=== PATIENT | female | born 1955 | race Caucasian/White ===

== ENCOUNTER 2017-11-09 14:42 | Emergency (ER) | payer MEDICAID | END 2017-11-09 18:12 | disposition home or self-care (01) | LOC: D.ER 14:42 | DX: J20.9 Acute bronchitis, unspecified (principal); J45.909 Unspecified asthma, uncomplicated; J01.90 Acute sinusitis, unspecified; K21.9 Gastro-esophageal reflux disease without esophagitis; F17.200 Nicotine dependence, unspecified, uncomplicated ==

== ENCOUNTER 2019-10-20 17:53 | Emergency (ER) | payer MEDICARE, MEDICAID ==
[~2019-10-20] VITALS: Ht 172.7 cm; Wt 86.4 kg
[2019-10-20 18:21] VITALS: Ht 172.7 cm; Wt 86.4 kg
[2019-10-20] MEDS ORDERED: MECLIZINE HCL25 MG PO (19:33)
[2019-10-20] MEDS ORDERED: OMNICEF300 MG PO (19:33)
[2019-10-20 19:41] LABS: BASOPHILS 0.2 % (0-2); EOSINOPHILS 2.1 % (0-7); HEMATOCRIT 40.6 % (36.0-48.0); HEMOGLOBIN 13.3 g/dL (12-16); IMMATURE GRANULOCYTES 0.2 % (0-5); LYMPHOCYTES 46.8 % (15-50); MCH 29.8 pg (26.0-34.0); MCHC 32.8 g/dL (31.0-37.0); MEAN PLATELET VOLUME 9.9 fL (7.4-10.4); MONOCYTES 11.3 % (2-11); NEUTROPHILS 39.4 % (40-80); PLATELET COUNT 259 10x3/uL (130-400); RBC 4.46 10x6/uL (4.00-5.40); RDW 12.7 % (11.5-14.5); WBC 6.1 10x3/uL (4.8-10.8)
[2019-10-20 19:46] LABS: CALC OSMOLALITY 280 mosm/kg (275-300); CALCIUM 9.2 mg/dL (8.5-10.1); CARBON DIOXIDE 31.8 mmol/L (21.0-32.0); CHLORIDE - SERUM 102 mmol/L (98-107); CREATININE - SERUM 1.4 mg/dL (0.6-1.3); GLUCOSE 101 mg/dL (74-106); POTASSIUM - SERUM 4.7 mmol/L (3.5-5.1); SODIUM 139 mmol/L (136-145); UREA NITROGEN 22 mg/dL (7-18); eGFR NON AFRICAN AMERICAN 40 mL/min (90-120)
[2019-10-20 19:59] LABS: ALBUMIN 3.3 g/dL (3.4-5.0); ALKALINE PHOSPHATASE 104 U/L (46-116); ALT (SGPT) 16 U/L (10-68); PRO BNP 97 pg/mL (0-125); PROTEIN - SERUM 7.2 g/dL (6.4-8.2); TROPONIN-I < 0.017 ng/mL (0.000-0.060)
[2019-10-20 20:17] LABS: COLOR YELLOW (YELLOW)
[2019-10-20 20:18] LABS: APPEARANCE CLEAR (CLEAR); BILIRUBIN NEGATIVE (NEGATIVE); GLUCOSE NEGATIVE (NEGATIVE); KETONE NEGATIVE (NEGATIVE); NITRITE NEGATIVE (NEGATIVE); PROTEIN NEGATIVE (NEGATIVE); UROBILINOGEN NORMAL (NORMAL)
[2019-10-20 20:53] VITALS: BP 120/64
== END 2019-10-20 20:53 | disposition home or self-care (01) ==
LOC: D.ER 17:53
PROVIDERS: Family Medicine
DX: H83.02 Labyrinthitis, left ear (principal); R42 Dizziness and giddiness; H61.23 Impacted cerumen, bilateral; I10 Essential (primary) hypertension; N18.9 Chronic kidney disease, unspecified

== ENCOUNTER 2020-04-18 14:18 | Emergency (ER) | payer MEDICARE, MEDICAID ==
[~2020-04-18] VITALS: Ht 172.7 cm; Wt 88.6 kg
[~2020-04-18 14:18] MED LIST: MECLIZINE HCL25 MG PO; OMNICEF300 MG PO
[2020-04-18 14:22] VITALS: Ht 172.7 cm; Wt 88.6 kg
[2020-04-18] MEDS ORDERED: OMEPRAZOLE40 MG PO (14:41)
[2020-04-18] MEDS ORDERED: LISINOPRIL-HCT1 EAC8 PO (14:41)
[2020-04-18 14:53] LABS: BASOPHILS 0.2 % (0-2); EOSINOPHILS 2.3 % (0-7); HEMATOCRIT 40.2 % (36.0-48.0); HEMOGLOBIN 13.4 g/dL (12-16); IMMATURE GRANULOCYTES 0.2 % (0-5); LYMPHOCYTES 38.4 % (15-50); MCH 29.3 pg (26.0-34.0); MCHC 33.3 g/dL (31.0-37.0); MCV 87.8 fL (80.0-100.0); MEAN PLATELET VOLUME 9.3 fL (7.4-10.4); MONOCYTES 7.8 % (2-11); NEUTROPHILS 51.1 % (40-80); PLATELET COUNT 254 10x3/uL (130-400); RBC 4.58 10x6/uL (4.00-5.40); RDW 13.5 % (11.5-14.5)
[2020-04-18 15:03] LABS: APTT 26.9 SECONDS (22.8-39.4); INR 0.97 (0.85-1.17); PROTIME 12.8 SECONDS (11.6-15.0)
[2020-04-18 15:05] LABS: CALC OSMOLALITY 281 mosm/kg (275-300); CALCIUM 9.3 mg/dL (8.5-10.1); CARBON DIOXIDE 28.6 mmol/L (21.0-32.0); CHLORIDE - SERUM 103 mmol/L (98-107); CREATININE - SERUM 1.7 mg/dL (0.6-1.3); GLUCOSE 139 mg/dL (74-106); POTASSIUM - SERUM 3.8 mmol/L (3.5-5.1); SODIUM 138 mmol/L (136-145); UREA NITROGEN 23 mg/dL (7-18); eGFR NON AFRICAN AMERICAN 32 mL/min (90-120)
[2020-04-18 15:22] LABS: ALBUMIN 3.6 g/dL (3.4-5.0); ALKALINE PHOSPHATASE 122 U/L (30-120); ALT (SGPT) 15 U/L (10-68); BILIRUBIN - TOTAL 0.31 mg/dL (0.2-1.3); CKMB 0.5 U/L (0.0-3.6); CREATINE KINASE 50 UL (21-215); MAGNESIUM - SERUM 2.2 mg/dL (1.8-2.4); PROTEIN - SERUM 7.5 g/dL (6.4-8.2); TROPONIN-I < 0.017 ng/mL (0.000-0.060)
[2020-04-18 15:25] LABS: BILIRUBIN NEGATIVE (NEGATIVE); GLUCOSE NEGATIVE (NEGATIVE); KETONE NEGATIVE (NEGATIVE); NITRITE NEGATIVE (NEGATIVE); UROBILINOGEN NORMAL (NORMAL)
[2020-04-18] MEDS ORDERED: STERAPRED 5MG 65 M1 PO (16:07)
[2020-04-18] MEDS ORDERED: ZYRTEC10 MG PO (16:07)
[2020-04-18 16:24] VITALS: BP 130/78
== END 2020-04-18 16:26 | disposition home or self-care (01) ==
LOC: D.ER 14:18
PROVIDERS: Family Medicine
DX: M94.0 Chondrocostal junction syndrome [Tietze] (principal); R07.89 Other chest pain; R05 Cough; I10 Essential (primary) hypertension; Z72.0 Tobacco use